=== PATIENT | male | born 1950 | race Caucasian/White ===

== ENCOUNTER 2022-06-06 17:20 | Emergency (ER) | payer BC, MEDICARE, OTHER ==
[2022-06-06 18:35] LABS: TROPONIN I HIGH SENSITIVITY 5.8 pg/mL (<=60.3)
== END 2022-06-06 19:06 | disposition home or self-care (01) ==
LOC: JP.ED 17:20
DX: R07.89 Other chest pain (principal); E78.00 Pure hypercholesterolemia, unspecified; I10 Essential (primary) hypertension; Z79.899 Other long term (current) drug therapy; Z79.84 Long term (current) use of oral hypoglycemic drugs
CPT/HCPCS: 36415; 80048; 84484; 85025; 85379; 93005; 99285